=== PATIENT | female | born 2000 | race Caucasian/White ===

== ENCOUNTER 2019-10-25 23:08 | Emergency (ER) | payer BC ==
[~2019-10-25] VITALS: Ht 160 cm; Wt 58.5 kg
[2019-10-25 23:13] VITALS: Ht 160 cm; Wt 58.5 kg
[2019-10-26 02:00] VITALS: BP 125/78
== END 2019-10-26 02:00 | disposition home or self-care (01) ==
LOC: ED 23:08
DX: R11.2 Nausea with vomiting, unspecified (principal); R50.9 Fever, unspecified; J45.909 Unspecified asthma, uncomplicated; F17.210 Nicotine dependence, cigarettes, uncomplicated; Z88.1 Allergy status to other antibiotic agents
CPT/HCPCS: 87804; J1885; Q0162

== ENCOUNTER 2020-02-13 17:59 | Emergency (ER) | payer BC ==
[~2020-02-13] VITALS: Ht 160 cm; Wt 61.2 kg
[2020-02-13 18:17] VITALS: Ht 160 cm; Wt 61.2 kg
[2020-02-13 20:19] LABS: BASOPHIL % 0.4 % (0-2); PLATELET COUNT 279 x10^3mcL (130-400); RED CELL DISTRIBUTION WIDTH 13.1 % (11.5-14.5)
[2020-02-13 20:27] LABS: UA SPECIFIC GRAVITY 1.015 (1.005-1.035); microscopic required? YES; urine erythrocyte 2+ (NEGATIVE)
[2020-02-13 21:33] VITALS: BP 147/67
== END 2020-02-13 21:33 | disposition home or self-care (01) ==
LOC: ED 17:59
PROVIDERS: Emergency Medicine
DX: O23.41 Unspecified infection of urinary tract in pregnancy, first trimester (principal); O34.81 Maternal care for other abnormalities of pelvic organs, first trimester; N83.201 Unspecified ovarian cyst, right side; O99.511 Diseases of the respiratory system complicating pregnancy, first trimester; Z88.1 Allergy status to other antibiotic agents; Z3A.00 Weeks of gestation of pregnancy not specified

== ENCOUNTER 2020-04-26 22:43 | Emergency (ER) | payer BC ==
[~2020-04-26] VITALS: Ht 162.6 cm; Wt 61.2 kg
[2020-04-26 22:47] VITALS: Ht 162.6 cm; Wt 61.2 kg
[2020-04-27 00:42] LABS: BASOPHIL % 0.3 % (0-2); PLATELET COUNT 282 x10^3mcL (130-400); RED CELL DISTRIBUTION WIDTH 13.2 % (11.5-14.5)
[2020-04-27 01:09] LABS: CALCIUM 9.6 mg/dL (8.5-10.1); CARBON DIOXIDE 24.5 mmol/L (21-32); CHLORIDE SERUM 104 mmol/L (98-107); GFR1 > 60 mL/min; GLUCOSE SERUM 106 mg/dL (74-106); POTASSIUM SERUM 3.5 mmol/L (3.5-5.1); SODIUM SERUM 139 mmol/L (136-145)
[2020-04-27 01:23] LABS: FREE T4 1.64 ng/dL (0.76-1.46); MAGNESIUM 2.1 mg/dL (1.8-2.4)
[2020-04-27 02:07] VITALS: BP 116/74
== END 2020-04-27 02:07 | disposition home or self-care (01) ==
LOC: ED 22:43
PROVIDERS: Emergency Medicine
DX: F41.9 Anxiety disorder, unspecified (principal); K21.9 Gastro-esophageal reflux disease without esophagitis; J45.909 Unspecified asthma, uncomplicated; Z88.1 Allergy status to other antibiotic agents
CPT/HCPCS: 84439; J2405; J7030